=== PATIENT | male | born 1945 | race Caucasian/White ===

== ENCOUNTER → 2024-02-05 | Outpatient (CLI) | payer MEDICARE, SELFPAY ==
--- NOTE | 2024-02-05 09:51 | PCM.PR.HP ---
History of Present Illness General Arrival date:: 02/05/24 Arrival time:: 09:52 Date of Referral:: 01/15/24 Date of Evaluation: 02/05/24 Referring Physician: STEFFANIE Primary Diagnosis: COPD SEVERE History of Present Pulmonary Event [facility] Breathless Scale: When is the patient short of breath? Y/N Grade: Description of Breathlessness: 0 I only get breathless with strenuous exercise. 1 I get short of breath when hurrying on level ground or walking up a slight hill. 2 On level ground, I walk slower than people of the same age because of breathless, or have to stop for breath when walking at my own pace. 3 I stop for breath after walking 100 yards or after a few minutes on level ground. 4 I am too breathless to leave the house or I am breathless when dressing. Secretions Normal Color:: clear Thick:: Yes Amount/Day:: 1 TSP Cough:: Yes Sleep Disorder Evaluation Hx of Sleep Apnea: No Do you snore loudly (louder than talking or can be heard through closed doors)?: No Do you often feel tired/ fatigued/ sleepy during daytime?: No Has anyone observed you stop breathing during sleep?: No History of Hypertension (for STOP score): No STOP Results: Negative Medical Utilization Medical Devices Do you use a peak flow meter at home?: No Do you use a spacer device with your inhalers?: No Medical Utilization Number of hospital visits in the last year?: 3 Number of emergency room visits in the last year?: 3 Do you see your physician on a regular schedule?: Yes How often?: 3x year Advanced Directives Advanced Directives Power of Studio Producer: Yes Living Will: Yes Advance Directives Information Provided: No Advance Directives on File: No DNR Order?:: No Past Medical History Covid-19 Screening Physicial Symptoms Other Clinical Concerns Exposure Risk Pertinent Comorbidities 65 years or older:: Yes Has a chronic lung disease or moderate to severe asthma:: Yes Social History Smoking History Smoking Status: Former smoker Years Smokin Packs Smoked per Day: 1 (stopped in 2013) Alcohol Use Alcohol Usage: No Substance Abuse Hx Substance Use: No Occupation Occupation (List type of work in comments):: Retired Hobbies, Recreation, Social Activities Hobbies: Other Recreational Activities: I am able to engage in most, but not all activities Functioning ADL/IADL Current Ability Current Ability: Independent: Self-Care (e.g.,grooming, dressing, & bathing), Independent: Ambulation, Independent: Transfer and Independent: Household tasks (e.g., light meal prep, laundry, shopping) Pt Functioning Prior to Problem Prior Functioning: Self-Care (e.g.,grooming, dressing, & bathing): Independent, Ambulation: Independent, Transfer: Independent and Household tasks (e.g., light meal prep, laundry, shopping): Independent Social Environment Status Marital Status: Single Current Living Arrangements Living Environment:: Alone Children How many children do you have?: 1 Do any of your children live nearby?: Yes Safety Do you feel safe in your surroundings?: Yes Assistance Do you need any assistance at home?: no Review of Systems Review of Systems Review of Systems Respiratory: Reports Cough, Hemoptysis, SOB at Rest, SOB upon Exertion, Sputum production, Appetite, Normal, Fatigue and Sleep, Normal; Denies Pleuritic Pain, Wheezing, Dizziness/Lightheadedness, PVD or Sexual changes Pain Is Patient Pain Free?: No Pain Location: back and other (shoulders) Pain Level: 5/10 Risk Factor Assessment Chief Complaint Chief Complaint: COPD SEVERE Vital Signs Pulse Rate: 68 Pulse Rhythm: Regular Pulse Ox: 95 Blood Pressure: 150/80 Obesity Height: 6 ft Weight:: 180 lb Weight in Pounds: 180.0 lbs Weight Source: Estimated by Patient Body Mass Index (BMI): 24.4 Nutritional Referral for Obesity: No Physical Activity Physical Inactivity: None Risk Stratification Risk Guidelines: Moderate Risk: Risk Factor for Smoking, Risk Factor for Dyslipidemia, Risk Factor for Diabetes, Risk Factor for Obesity, Risk Factor for Hypertension and Risk Factor for Depression For Smoking Smoking Risk Guidelines For Dyslipidemia Dyslipidemia Risk Guidelines For Diabetes Mellitus Diabetes Risk Guidelines For Obesity/Overweight Obesity/Overweight Risk Guidelines For Hypertension Hypertension Risk Guidelines For Sedentary Lifestyle Sedentary Lifestyle Risk Guidelines For Depression Depression Risk Guidelines Motivation Motivation to Participate On a scale of 1 to 10, how prepared are you to commit to attending program?: 6 What do you see as barriers to successfully being able to complete the program?: no What do you see as the benefits of succesfully completing the program? In other words, what do you hope to get out of participating in the program?: more stamina Are there issues you are dealing with that will interfere with completing the program?: no Do you have a spouse or signficant other, family or friends who will help support you to complete the program?: yes
--- NOTE | 2024-02-05 09:58 | PCM.PR.TP ---
General Information2 General Information Admitting Diagnosis: COPD SEVERE Gold Classification:: GOLD 3: Severe Oxygen: 2 liters Personal Learning Style/Barriers Personal Learning Style:: Audio/Visual Stage of change r/t lifestyle modifications: Contemplation Education/Goals NE Patient Goals: Increase muscle strength: Initial Assessment, Experience less dyspnea: Initial Assessment, Improve energy level: Initial Assessment, Improve the ability to cope with ADLs: Initial Assessment, Improve diet and nutrition: Initial Assessment, Improve my quality of life: Initial Assessment and Reduce Stress/relaxation techniques: Initial Assessment Exercise - Initial Assessment Visit Date of Eval: 02/05/24 (initial eval ) Problem/Goals Problems: Deconditioning, No regular exercise, Knowledge deficit exercise guidelines and Knowledge deficit exercise safety Goals:: Resistance: 2-3x/weekly Physician Prescribed Exercise Modalities: Treadmill, Rower, Airdyne, NuStep, SciFit and Lateral [place] Frequency (days/week): 3 Duration (Minutes):: 30-45 Intensity: 60-80% of age predicted maximum heart rate reserve Current METSs:: 2 Target HR:: 98 Resting Blood Pressure: 150/80 Plan Plan and Plan to Review:: Benefits of exercise, Core components of exercise, How to measure dyspnea level, How to monitor dyspnea level, Exercise intensity, Home exercise guidelines and Thierry: 3-4/11-13 Home Exercise Mode: Other Nutrition/Wt Mgmt - Initial Visit Date of Eval: 02/05/24 (initial eval ) Weight Management Admit Height:: 6 ft Admit Weight:: 180 lb Admit BMI:: 24.4 Intervention Referral to dietitian:: No Will attend diet classes:: Yes Intervention/Plan: Instruct on ideal BMI & set weight loss goal w/patient, Assist pt to ID & incorporate diet changes for weight loss by S9, Refer to Structured Weight Loss program as appropriate, Encourage goal of using 250-300dcal per session for weight loss and Other additional plan/interventions Plan Nutrition Plan: Yes: Review BMI or WC & identify target wt & strategies for wt control, Yes: Nutrition education class:, Yes: Medication education class [Prednisone]:, Yes: Weight control education class:, Yes: Education re: Need for ongoing weight monitoring, Yes: Food diary: and Yes: Physical activity log: Nutrition/Wt Mgmt - 30-Day Weight Management Height: 6 ft Weight:: 180 lb BMI: 24.4 Nutrition/Wt Mgmt - 60-Day Weight Management Height: 6 ft Weight:: 180 lb BMI: 24.4 Nutrition/Wt Mgmt - 90-Day Weight Management Height: 6 ft Weight:: 180 lb BMI: 24.4 Nutrition/Wt Mgmt - Final Weight Management Height: 6 ft Weight:: 180 lb BMI: 24.4 Psychosocial - Initial Assess Visit Date of Eval: 02/05/24 (initial eval ) Problems/Goals History of Emotional Disorders: None Intervention/Plan: See List Interventions/Plan:: Assess stressors,coping strategies & signs of derpression on admission, Instruct/assist pt to develop coping & personal stress Mgt strategies, Refer to Behavioral Health if appropriate, Refer to Physician if appropriate, Instruct patient to recognize signs & symptoms of depression, Instruct patient to recog and Other additional plan/intervention Psychosocial - 30-Day Problems/Goals History of Emotional Disorders: None Plan Interventions/Plan:: Assess stressors,coping strategies & signs of derpression on admission, Instruct/assist pt to develop coping & personal stress Mgt strategies, Refer to Behavioral Health if appropriate, Refer to Physician if appropriate, Instruct patient to recognize signs & symptoms of depression, Instruct patient to recog and Other additional plan/intervention Psychosocial - 60-Day Problems/Goals History of Emotional Disorders: None Plan Interventions/Plan:: Assess stressors,coping strategies & signs of derpression on admission, Instruct/assist pt to develop coping & personal stress Mgt strategies, Refer to Behavioral Health if appropriate, Refer to Physician if appropriate, Instruct patient to recognize signs & symptoms of depression, Instruct patient to recog and Other additional plan/intervention Psychosocial - 90-Day Problems/Goals History of Emotional Disorders: None Plan Interventions/Plan:: Assess stressors,coping strategies & signs of derpression on admission, Instruct/assist pt to develop coping & personal stress Mgt strategies, Refer to Behavioral Health if appropriate, Refer to Physician if appropriate, Instruct patient to recognize signs & symptoms of depression, Instruct patient to recog and Other additional plan/intervention Psychosocial - Final Assess Problems/Goals History of Emotional Disorders: None Plan Interventions/Plan:: Assess stressors,coping strategies & signs of derpression on admission, Instruct/assist pt to develop coping & personal stress Mgt strategies, Refer to Behavioral Health if appropriate, Refer to Physician if appropriate, Instruct patient to recognize signs & symptoms of depression, Instruct patient to recog and Other additional plan/intervention Oxygen & Oxygen Titration Init Visit Date of Eval: 02/05/24 (initial eval ) Initial Assessment Oxygen on Admission: Continuous home use Patient Reports:: Prod cough daily >1 Tbsp and Hospitalized in the past 12 months [list how many times] Goal Oxygen & Oxygen Tritration Goals: Effective hypoxemia control and Uses O2 as Rx'd/safely Plans Plan: Monitor SpO2 rest & with exercise, Recommend appropriate FiO2 to Pt/MD, Assist to contact DME for O2, Train appropriate O2 use at rest, Train appropriate O2 use with exercise and Train O2 safety & systems Reviewed prescribed medications:: Purpose, Schedule and Importance of compliance Instruct correct technique/timing & care:: MDI, DPI, Nebulizer and Return demo use of inhaler Bronchial Hygiene Plan: Controlled cough, CPT, Vibratory PEP device, VEST, Role of exercise in secretion clearance, NS Nasal spray, Hydration, Hand hygiene, Evaluate sputum, When to call MD, Signs/symptoms to report:, Influenza/Pneumovax vaccines and Cleaning of respiratory equipment Core Components - Initial Visit Date of Eval: 02/05/24 (initial eval ) Hypertension Hypertension Diagnosis:: Not Applicable [place] [employer] Hypertension Guidelines Blood Pressure: 150/80 Outcomes/Goals: Able to verbalize/achieve optimal blood pressure <130/80, Incorporates diet changes & exercise for blood pressure control by DC and Other additional outcomes/goals Tobacco - Initial Assessment Tobacco Program Goals Stages of Change:: Contemplate Do you have family support?: Yes Tobacco Use: Non-smoker (reformed) Years Smokin Do you use smokeless tobacco?: No Smoking Cessation Referral:: No Individual Education/Counseling:: No Education Schedule Given:: Yes Gave Education Materials For:: Tobacco Triggers, Pulmonary Disease, Risk Factors, Breathing Techniques, Medical Compliance, Pulmonary A&P, Exacerbation Signs & Symptoms and Stress & Relaxation Exacerbation Mgmt & Airway Clearance Problems:: Poor knowledge of O2 use/safety Hypoxemia Goals:: Hypoxemia managed, Port system and Using O2 as Rx's safely Goals: Pt demonstrates effective cough, effective secretion clearance. and Pt describes signs and symptoms of infection. Patient Reports:: Prod cough daily >1 Tbsp and Hospitalized in the past 12 months [list how many times] Plan: Monitor SpO2 rest & with exercise, Recommend appropriate FiO2 to Pt/MD, Assist to contact DME for O2, Train appropriate O2 use at rest, Train appropriate O2 use with exercise and Train O2 safety & systems Instruct correct technique/timing & care:: MDI, DPI, Nebulizer and Return demo use of inhaler Bronchial Hygiene Plan: Controlled cough, CPT, Vibratory PEP device, VEST, Role of exercise in secretion clearance, NS Nasal spray, Hydration, Hand hygiene, Evaluate sputum, When to call MD, Signs/symptoms to report:, Influenza/Pneumovax vaccines and Cleaning of respiratory equipment Medication Interventions/plans: Instruct on medication effects & side effects, Review medication list w/patient every two weeks, Instruct importance of taking meds as ordered & assist problem solving and Other additional Medication Goals: Adherence to prescribed medications and Correct technique/timing & care of MDI, DPI, nebulizer, and spacer. Does pt report taking home meds as prescribed?: Yes Reviewed prescribed medications:: Purpose, Schedule and Importance of compliance Diabetes Diabetes:: No Referral to dietitian:: No Referral to Diabetic Clinic:: No Will attend diet classes:: Yes Core Components - 30 DAYS Hypertension Hypertension Diagnosis:: Not Applicable [place] [employer] Hypertension Guidelines Peak Exercise Blood Pressure:: 150/80 Outcomes/Goals: Able to verbalize/achieve optimal blood pressure <130/80, Incorporates diet changes & exercise for blood pressure control by DC and Other additional outcomes/goals Tobacco - 30-Day Tobacco Program Goals Stages of Change:: Contemplate Do you have family support?: Yes Tobacco Use: Non-smoker (reformed) Do you use smokeless tobacco?: No Smoking Cessation Referral:: No Education Schedule Given:: Yes Gave Education Materials For:: Tobacco Triggers, Pulmonary Disease, Risk Factors, Breathing Techniques, Medical Compliance, Pulmonary A&P, Exacerbation Signs & Symptoms and Stress & Relaxation Diabetes Diabetes:: No Core Components - 60 DAYS Hypertension Hypertension Diagnosis:: Not Applicable [place] [employer] Hypertension Guidelines Peak Exercise Blood Pressure:: 150/80 Outcomes/Goals: Able to verbalize/achieve optimal blood pressure <130/80, Incorporates diet changes & exercise for blood pressure control by DC and Other additional outcomes/goals Tobacco - 60-Day Tobacco Program Goals Stages of Change:: Contemplate Do you have family support?: Yes Tobacco Use: Non-smoker (reformed) Do you use smokeless tobacco?: No Smoking Cessation Referral:: No Individual Education/Counseling:: No Education Schedule Given:: Yes Gave Education Materials For:: Tobacco Triggers, Pulmonary Disease, Risk Factors, Breathing Techniques, Medical Compliance, Pulmonary A&P, Exacerbation Signs & Symptoms and Stress & Relaxation Diabetes Diabetes:: No Core Components - 90 DAYS Hypertension Hypertension Diagnosis:: Not Applicable [place] [employer] Hypertension Guidelines Peak Exercise Blood Pressure:: 150/80 Outcomes/Goals: Able to verbalize/achieve optimal blood pressure <130/80, Incorporates diet changes & exercise for blood pressure control by DC and Other additional outcomes/goals Tobacco - 90-Day Tobacco Program Goals Stages of Change:: Contemplate Do you have family support?: Yes Tobacco Use: Non-smoker (reformed) Do you use smokeless tobacco?: No Smoking Cessation Referral:: No Individual Education/Counseling:: No Education Schedule Given:: Yes Gave Education Materials For:: Tobacco Triggers, Pulmonary Disease, Risk Factors, Breathing Techniques, Medical Compliance, Pulmonary A&P, Exacerbation Signs & Symptoms and Stress & Relaxation Diabetes Diabetes:: No Core Components - Final Hypertension Hypertension Diagnosis:: Not Applicable [place] [employer] Hypertension Guidelines Peak Exercise Blood Pressure:: 150/80 Outcomes/Goals: Able to verbalize/achieve optimal blood pressure <130/80, Incorporates diet changes & exercise for blood pressure control by DC and Other additional outcomes/goals Tobacco - Final Tobacco Program Goals Stages of Change:: Contemplate Do you have family support?: Yes Tobacco Use: Non-smoker (reformed) Do you use smokeless tobacco?: No Smoking Cessation Referral:: No Individual Education/Counseling:: No Education Schedule Given:: Yes Diabetes Diabetes:: No Patient Health Questionnaire PHQ-9 Screening Initial Assessment: 1. Little interest or pleasure in doing things: Several days 2. Feeling down, depressed, or hopeless: Not at all 3. Trouble falling or staying asleep, or sleeping too much: Several days 4. Feeling tired or having little energy: More than half the days 5. Poor appetite or overeating: Not at all 6. Feeling bad about yourself -- or that you are a failure or have let yourself or your family down: Not at all 7. Trouble concentrating on things, such as reading the newspaper or watching television: Several days 8. Moving or speaking so slowly that other people could have noticed. Or the opposite - being so fidgety or restless that you have been moving around a lot more than usual: Not at all 9. Thoughts that you would be better off , or of hurting yourself in some way: Not at all How difficult have these problems made it for you to do your work, take care of things at home, or get along with other people?: Somewhat difficult Total Score: 5 Knowledge Questionaire (BCKQ) Information Information: [facility] COPD Knowledge Questionnaire (BCKQ) This questionnaire is designed to find out what you know about your lung problem. It should be completed without help form anyone else. This usually takes between 10 and 20 minutes. Your answers will help us to find out what information you need to help you to understand and manage your lung condition. Devaughn the grindstone which you think is the correct answer. Questions 1. In COPD: b. COPD can only be confirmed by breathing tests: True c. In COPD ther is usually gradual worsening over time: True d. In COPD oxygen levels in the blood are always low: False e. COPD is usually in people less than 40 years old: False 2. COPD: Lisa than 80% of COPD cases are caused by cigarette smoking: Don't know b. COPD can be caused by occupational dust exposure: True c. Longstanding asthma can develop into COPD: Don't know d. COPD is commonly an inherited disease: False e. Women are less vunerable to the effects of cigarette than men: False 3. The following symptoms are Common in COPD: a. Swelling of the ankles is common in COPD:: False b. Fatigue [tiredness] is common in COPD: Don't know c. Wheezing is common in COPD: True d. Crushing chest pain is common in COPD: Don't know e. Rapid weight loss is common in COPD: Don't know 4. Breathlessness in COPD: a. Severe breathlessness prevents travel by air: Don't know b. Breathlessness can be worsened by eating large meals: Don't know c. Breathlessness means that your oxygen levels are low: True d. Breathlessness is a normal response to exercise: True e. Breathlessness is primarily caused by a narrowing of the bronchial tubes: Don't know 5. Phlegm (sputum): a. Coughing phlegm is a common symptom in COPD: True b. Clearing phlegm is more difficult if you get dehydrated: Don't know c. Bronchodilator inhalers can help clear phlegm: Don't know d. Phlegm causes harm if swallowed: Don't know e. Clearing phlegm can be assisted by breathing exercises: True 6. Chest infections / exacerbations: a. Chest infections often cause coughing of blood: Don't know b. Chest infection phlegm usually becomes coloured (ylw/grn): True cExerbations (episodes of worsening) can occur in the absence of chest infection: Don't know d. Chest infections are always accompanied by a high temperature: Don't know e. Steroid tablets should be taken whenever there is an exacerbation: Don't know 7. Excercise in COPD: aWalking excercises better than breathing to improve fitness: False b. Exercise should be avoided as it strains the lungs: False c. Exercise can help maintain your bone density: True d. Exercise helps relieve depression: True e. Exercise should be stopped if it makes you breathless: True 8. Smoking: a. Stopping smoking will reduce the risk of heart disease: True b. Stopping smoking will slow down further lung damage: True c. Stopping smoking is pointless as the damage is done: False d.Stopping smoking usually results in improved lung function: True eNicotine replacement therapy only available on prescription: False 9. Vaccination: a. A flu jab is recommended every year: True b. You can get flu from having a flu jab: False c. You can only have a flu jab if you are 65 or over: Don't know d. A pneumonia jab protects against all forms of pneumonia: False e.You can have a pneumonia jab and a flu job on the same day: Don't know 10. Inhaled bronchodilators: a. Bronchodilators act quickly (within 10 minutes): Don't know b. Both short & long acting bronchodilators can be taken on the same day: True c. Spacers (volumatic,nebuhaler,serochamber)should be dried w/atowel after washing: Don't know d. A spacer device increases the medication to the lungs: Don't know e. Tremor may be a side effect of bronchodilators: True 11. Antibiotic treatment in COPD: a. To be effective, the course should last at least 10 days: Don't know b. Excessive use of antibiotics can cause resistant bacteria (germs): Don't know c. Antibiotics will clear all chest infections: False d. Antibiotic treatment is necessary for an exacerbation (worsening) however mild: False e. Seek advice if antibiotics cause severe diarrhoea: True 12. Steroid tablets given for COPD (eg Prednisolone): a. Steroid tablets help strengthen muscles: Don't know b. Steroid tablets should be avoided if there is a chest infection: Don't know c. The risk of long-term side effects due to steroids is less w/short courses then w/continous treatment: False dIndigestion is common side effect from using steroid tablet: Don't know e. Steroid tablets can increase your appetite: Don't know 13. Inhaled steroids (brown, red or orange): a. Inhaled steroids should be stopped if you are given steroid tablets: Don't know bSteroid inhalers can be used for rapid relief breathlessnes: True c. Spacer devices reduce the risk of getting thrush in the mouth: True d.Steroid inhaler should be taken before your bronchodilator: Don't know e. Inhaled steroids improve lung function in COPD: True COPD Assessment Test [CAT] Questions Never cough = 0, Cough all the time = 5: 1 No phlegm = 0, Chest full of phlegm = 5: 2 No chest tightness = 0, Chest very tight = 5: 1 No breathless w/exertion = 0, Very breathless w/exertion = 5: 5 No limitations w/activity = 0, Very limited w/activity = 5: 3 Confident leaving home = 0, Not at all confident = 5: 2 Sleep soundly = 0, Don't sleep soundly = 5: 2 Lots of energy = 0, No energy at all = 5: 5 Total CAT score:: 21 Self-Efficacy 6-Item Scale Initial Assessment: We would like to know how confident you are in doing certain activities. Please select your confidence level for: Fatigue Select Number: 4 Physical Discomfort or Pain Select Number: 3 Emotional Distress Select Number: 3 Other Symptoms or Health Problems Select Number: 2 Different Tasks and Activities Select Number: 5 Medication Select Number: 5 Total Score:: 3 Nutrition Survey Nutrition Survey Instructions Scoring Instructions Nutrition Survey Initial: Have you lost >10 lbs over the past 2 months without trying?: No Are you following a special diet at home for diabetes, low fat, or low salt?: No Are you interested in meeting with a dietitian for help understanding your diet?: No Do you eat less than 3 meals a day?: Yes Do you eat fatty meats (antunez, sausage, ribs, etc), fried foods, desserts, large amounts of salad dressings, margarine, butter, or cheese most days?: Yes Do you have food allergies? [Enter types in comment field]: No Do you eat in restaurants more than 3 times a week?: Yes Do you season food with salt, seasoning salt, or garlic salt?: No Do you used canned, boxed, frozen meals, or soups, seasoning packets?: Yes Total Score:: 4
[2024-02-05 10:34] VITALS: PULSE 68; O2SAT 95
[2024-02-05 10:38] VITALS: BP 150/80
[2024-02-05 10:54] VITALS: BP 150/80
[2024-02-05 11:11] VITALS: BMI 24.4
[2024-02-05 11:21] VITALS: BMI 24.4
== END | disposition home or self-care (01) ==
DX: J44.9 Chronic obstructive pulmonary disease, unspecified (principal)

== ENCOUNTER 2024-02-14 10:00 | Outpatient (RCR) | payer MEDICARE, SELFPAY ==
[2024-02-05 11:11] VITALS: BMI 24.4
== END 2024-02-16 23:59 ==
LOC: PR 10:00
DX: J44.9 Chronic obstructive pulmonary disease, unspecified (principal)
CPT/HCPCS: 97150; 94626

== ENCOUNTER 2024-03-16 13:00 | Outpatient (RCR) | payer MEDICARE, SELFPAY ==
[2024-02-05 11:11] VITALS: BMI 24.4
== END 2024-03-17 23:59 ==
LOC: PR 13:00
DX: J44.9 Chronic obstructive pulmonary disease, unspecified (principal)
CPT/HCPCS: 97150; 94626

== ENCOUNTER 2024-04-17 13:00 | Outpatient (RCR) | payer OTHER, SELFPAY ==
[2024-02-05 11:11] VITALS: BMI 24.4
--- NOTE | 2024-04-06 07:01 | PCM.PR.TP ---
Exercise - Initial Assessment Visit Session Number:: 22 Physician Prescribed Exercise Target HR:: 98 (THRR calculated 84-98) Current RPD:: 12-13 Maximum Exercise HR:: 98 Resting Blood Pressure: 116/62 Maximum Exercise Blood Pressure: 158/82 Minimum SpO2 with exercise: 94 (on 3 liters during exercise) EKG Type: NSR with rare PACs Nutrition/Wt Mgmt - Initial Visit Session Number:: 22 Weight Management Admit Height:: 6 ft Admit Weight:: 180 lb Admit BMI:: 24.4 Nutrition/Wt Mgmt - 30-Day Visit Date of Eval: 04/06/24 Session Number:: 22 Weight Management Height: 6 ft Weight:: 180 lb BMI: 24.4 Nutrition/Wt Mgmt - 60-Day Visit Date of Eval: 04/06/24 Session Number:: 22 Weight Management Height: 6 ft Weight:: 180 lb BMI: 24.4 Weight Goals Progress:: Goal met Nutrition/Wt Mgmt - 90-Day Visit Session Number:: 22 Weight Management Height: 6 ft Weight:: 180 lb BMI: 24.4 Weight Goals Progress:: Goal met Nutrition/Wt Mgmt - Final Visit Session Number:: 22 Weight Management Height: 6 ft Weight:: 180 lb BMI: 24.4 Psychosocial - Initial Assess Visit Session Number:: 22 Problems/Goals History of Emotional Disorders: Anxious and Depression Psychosocial Goals: 1. Patient is free from overwhelming symtoms of depression (or anxiety, 2. Identifies personal stressors & states the strategies for managing, 3. Identifies activities to decrease isolation and/or symptoms of, 4. Improved psychosocial coping skills., 5. Verbalizes coping strategies. and 7. Improved Q.O.L. Psychosocial Test Tool Used:: PHQ-9 Questionnaire Referred to MD for counseling:: No Referral to Behavioral Health PS - Interventions: Yes: Referral to Physician if PHQ-9 if score is 5-9: and Yes: Attend Stress Management Classes and No: Referral to Behavioral Health if PHQ-9 score >9: and No: Referral to [facility] Intervention/Plan: See List Interventions/Plan:: Assess stressors,coping strategies & signs of derpression on admission, Instruct/assist pt to develop coping & personal stress Mgt strategies, Instruct patient to recognize signs & symptoms of depression and Instruct patient to recog Psychosocial - 30-Day Visit Date of Eval: 04/06/24 Session Number:: 22 Problems/Goals History of Emotional Disorders: Anxious and Depression Psychosocial Goals: 1. Patient is free from overwhelming symtoms of depression (or anxiety, 2. Identifies personal stressors & states the strategies for managing, 3. Identifies activities to decrease isolation and/or symptoms of, 4. Improved psychosocial coping skills., 5. Verbalizes coping strategies. and 7. Improved Q.O.L. Psychosocial Test Tool Used:: PHQ-9 Questionnaire Referred to MD for counseling:: No Referral to Behavioral Health PS - Interventions: Yes: Referral to Physician if PHQ-9 if score is 5-9: and Yes: Attend Stress Management Classes and No: Referral to Behavioral Health if PHQ-9 score >9: and No: Referral to [facility] Plan Interventions/Plan:: Assess stressors,coping strategies & signs of derpression on admission, Instruct/assist pt to develop coping & personal stress Mgt strategies, Instruct patient to recognize signs & symptoms of depression and Instruct patient to recog Psychosocial - 60-Day Visit Date of Eval: 04/06/24 Session Number:: 22 Problems/Goals History of Emotional Disorders: Anxious and Depression Psychosocial Goals: 1. Patient is free from overwhelming symtoms of depression (or anxiety, 2. Identifies personal stressors & states the strategies for managing, 3. Identifies activities to decrease isolation and/or symptoms of, 4. Improved psychosocial coping skills., 5. Verbalizes coping strategies. and 7. Improved Q.O.L. Depression:: Impaired QOL Psychosocial Test Tool Used:: PHQ-9 Questionnaire Referred to MD for counseling:: No Referral to Behavioral Health PS - Interventions: Yes: Referral to Physician if PHQ-9 if score is 5-9: and Yes: Attend Stress Management Classes and No: Referral to Behavioral Health if PHQ-9 score >9: and No: Referral to [facility] Plan Interventions/Plan:: Assess stressors,coping strategies & signs of derpression on admission, Instruct/assist pt to develop coping & personal stress Mgt strategies, Instruct patient to recognize signs & symptoms of depression and Instruct patient to recog Psychosocial - 90-Day Visit Session Number:: 22 Problems/Goals History of Emotional Disorders: Anxious and Depression Psychosocial Goals: 1. Patient is free from overwhelming symtoms of depression (or anxiety, 2. Identifies personal stressors & states the strategies for managing, 3. Identifies activities to decrease isolation and/or symptoms of, 4. Improved psychosocial coping skills., 5. Verbalizes coping strategies. and 7. Improved Q.O.L. Depression:: Impaired QOL Psychosocial Test Tool Used:: PHQ-9 Questionnaire Referred to MD for counseling:: No Referral to Behavioral Health PS - Interventions: Yes: Referral to Physician if PHQ-9 if score is 5-9: and Yes: Attend Stress Management Classes and No: Referral to Behavioral Health if PHQ-9 score >9: and No: Referral to [facility] Plan Interventions/Plan:: Assess stressors,coping strategies & signs of derpression on admission, Instruct/assist pt to develop coping & personal stress Mgt strategies, Instruct patient to recognize signs & symptoms of depression and Instruct patient to recog Psychosocial - Final Assess Visit Session Number:: 22 Problems/Goals History of Emotional Disorders: Anxious and Depression Psychosocial Goals: 1. Patient is free from overwhelming symtoms of depression (or anxiety, 2. Identifies personal stressors & states the strategies for managing, 3. Identifies activities to decrease isolation and/or symptoms of, 4. Improved psychosocial coping skills., 5. Verbalizes coping strategies. and 7. Improved Q.O.L. Depression:: Impaired QOL Psychosocial Test Tool Used:: PHQ-9 Questionnaire Referred to MD for counseling:: No Referral to Behavioral Health PS - Interventions: Yes: Referral to Physician if PHQ-9 if score is 5-9: and Yes: Attend Stress Management Classes and No: Referral to Behavioral Health if PHQ-9 score >9: and No: Referral to [facility] Plan Interventions/Plan:: Assess stressors,coping strategies & signs of derpression on admission, Instruct/assist pt to develop coping & personal stress Mgt strategies, Instruct patient to recognize signs & symptoms of depression and Instruct patient to recog Oxygen & Oxygen Titration Init Visit Session Number:: 22 Initial Assessment SpO2:: 94 (on 3 liters during exercise) Oxygen & Oxygen Titration 30D Visit Date of Eval: 04/06/24 Session Number:: 22 Reassessment Breath Sounds:: Diminished and Insp. & Exp. Wheezing SpO2:: 94 (on 3 liters during exercise) Oxygen & Oxygen Titration 60D Visit Date of Eval: 04/06/24 Session Number:: 22 Reassessment Reassessment- 60 Days: Demonstrate knowledge of O2 Rx at rest & w/exercise, Using O2 as Rx'd, Has home O2 as Rx'd and Uses port O2 as Rx'd Breath Sounds:: Diminished and Insp. & Exp. Wheezing SpO2:: 94 (on 3 liters during exercise) Oxygen & Oxygen Titration 90D Visit Date of Eval: 04/06/24 Session Number:: 22 Reassessment Breath Sounds:: Diminished and Insp. & Exp. Wheezing SpO2:: 94 (on 3 liters during exercise) Oxygen & Oxygen Titration [place] Visit Date of Eval: 04/06/24 Session Number:: 22 Reassessment Breath Sounds:: Diminished and Insp. & Exp. Wheezing SpO2:: 94 (on 3 liters during exercise) [employer] Components - Initial Visit Session Number:: 22 Hypertension Hypertension Diagnosis:: Hypertension ICD-10 I10 BP: 116/62 [place] Hypertension Guidelines Blood Pressure: 158/82 Outcomes/Goals: Able to verbalize/achieve optimal blood pressure <130/80 and Incorporates diet changes & exercise for blood pressure control by DC Diabetes Diabetes:: No Heart Failure Documenting weight daily for CHF: No [employer] Components - 30 DAYS Visit Date of Eval: 04/06/24 Session Number:: 22 Hypertension Hypertension Diagnosis:: Hypertension ICD-10 I10 Resting Blood Pressure:: 116/62 [place] Hypertension Guidelines Peak Exercise Blood Pressure:: 158/82 Change in medication: No Outcomes/Goals: Able to verbalize/achieve optimal blood pressure <130/80 and Incorporates diet changes & exercise for blood pressure control by DC Interventions/plan: Instruct on optimal blood pressure, hypertension & medications and Instruct on effects of sodium, alcohol, stress, exercise &hypertension 30 day Reassessments:: Met Exacerbation Mgmt & Airway Clearance Reassessment: Demonstrates knowledge of O2 Rx at rest, Demonstrates knowledge of O2 Rx with exercise, Using O2 as prescribed, Has home O2 as prescribed and Uses port O2 as prescribed Bronchial Hygiene Plan: Yes: Pt demonstrates correctly for effective cough, Yes: Pt demo correct for improved hydration, Yes: Pt demo correct for hand hygiene, Yes: Pt demo correct for verbalize when to call MD and Yes: Pt demo correct for cleaning of respiratory equipment Medication Medication reassessment: Yes: Pt demonstrates correct technique timing for MDI (Demonstrated good technique/delivery of MDI), Yes: Pt demonstrates correct technique timing for DPI, Yes: Pt demonstrates correct technique timing for NEB and Yes: Pt demonstrates correct technique timing for spacer (Returned demonstration use of MDI/Spacer) Diabetes Diabetes:: No Heart Failure Documenting weight vickey: No [employer] Components - 60 DAYS Visit Date of Eval: 04/06/24 Session Number:: 22 Hypertension Hypertension Diagnosis:: Hypertension ICD-10 I10 Resting Blood Pressure:: 116/62 [place] Hypertension Guidelines Peak Exercise Blood Pressure:: 158/82 Change in medication: No Outcomes/Goals: Able to verbalize/achieve optimal blood pressure <130/80 and Incorporates diet changes & exercise for blood pressure control by DC Interventions/plan: Instruct on optimal blood pressure, hypertension & medications and Instruct on effects of sodium, alcohol, stress, exercise &hypertension 60 day Reassessments:: Met Exacerbation Mgmt & Airway Clearance Reassessment: Demonstrates knowledge of O2 Rx at rest, Demonstrates knowledge of O2 Rx with exercise, Using O2 as prescribed, Has home O2 as prescribed and Uses port O2 as prescribed Bronchial Hygiene Plan: Yes: Pt demonstrates correctly for effective cough, Yes: Pt demo correct for improved hydration, Yes: Pt demo correct for hand hygiene, Yes: Pt demo correct for verbalize when to call MD and Yes: Pt demo correct for cleaning of respiratory equipment Medication Medication list reviewed:: Yes Taking medications 100% of the time:: Met Medication reassessment: Yes: Pt demonstrates correct technique timing for MDI (Demonstrated good technique/delivery of MDI), Yes: Pt demonstrates correct technique timing for DPI, Yes: Pt demonstrates correct technique timing for NEB and Yes: Pt demonstrates correct technique timing for spacer (Returned demonstration use of MDI/Spacer) 60-day Reassessments:: Met Diabetes Diabetes:: No Heart Failure Documenting weight vickey: No Core Components - 90 DAYS Visit Session Number:: 22 Hypertension Hypertension Diagnosis:: Hypertension ICD-10 I10 Resting Blood Pressure:: 116/62 [place] Hypertension Guidelines Peak Exercise Blood Pressure:: 158/82 Outcomes/Goals: Able to verbalize/achieve optimal blood pressure <130/80 and Incorporates diet changes & exercise for blood pressure control by DC Interventions/plan: Instruct on optimal blood pressure, hypertension & medications and Instruct on effects of sodium, alcohol, stress, exercise &hypertension 90 day Reassessments:: Met Exacerbation Mgmt & Airway Clearance Bronchial Hygiene Plan: Yes: Pt demonstrates correctly for effective cough, Yes: Pt demo correct for improved hydration, Yes: Pt demo correct for hand hygiene, Yes: Pt demo correct for verbalize when to call MD and Yes: Pt demo correct for cleaning of respiratory equipment Medication Medication reassessment: Yes: Pt demonstrates correct technique timing for MDI (Demonstrated good technique/delivery of MDI), Yes: Pt demonstrates correct technique timing for DPI, Yes: Pt demonstrates correct technique timing for NEB and Yes: Pt demonstrates correct technique timing for spacer (Returned demonstration use of MDI/Spacer) Diabetes Diabetes:: No Core Components - Final Visit Session Number:: 22 Hypertension Hypertension Diagnosis:: Hypertension ICD-10 I10 Resting Blood Pressure:: 116/62 [place] [employer] Hypertension Guidelines Peak Exercise Blood Pressure:: 158/82 Outcomes/Goals: Able to verbalize/achieve optimal blood pressure <130/80 and Incorporates diet changes & exercise for blood pressure control by DC Exacerbation Mgmt & Airway Clearance Bronchial Hygiene Plan: Yes: Pt demonstrates correctly for effective cough, Yes: Pt demo correct for improved hydration, Yes: Pt demo correct for hand hygiene, Yes: Pt demo correct for verbalize when to call MD and Yes: Pt demo correct for cleaning of respiratory equipment Medication Medication reassessment: Yes: Pt demonstrates correct technique timing for MDI (Demonstrated good technique/delivery of MDI), Yes: Pt demonstrates correct technique timing for DPI, Yes: Pt demonstrates correct technique timing for NEB and Yes: Pt demonstrates correct technique timing for spacer (Returned demonstration use of MDI/Spacer) Diabetes Diabetes:: No Patient Health Questionnaire PHQ-9 Screening 60-Day Re-eval Assessment: 1. Little interest or pleasure in doing things: Not at all 2. Feeling down, depressed, or hopeless: Not at all 3. Trouble falling or staying asleep, or sleeping too much: Several days 4. Feeling tired or having little energy: Several days 5. Poor appetite or overeating: Not at all 6. Feeling bad about yourself -- or that you are a failure or have let yourself or your family down: Not at all 7. Trouble concentrating on things, such as reading the newspaper or watching television: Not at all 8. Moving or speaking so slowly that other people could have noticed. Or the opposite - being so fidgety or restless that you have been moving around a lot more than usual: Not at all 9. Thoughts that you would be better off , or of hurting yourself in some way: Not at all How difficult have these problems made it for you to do your work, take care of things at home, or get along with other people?: Not difficult at all Total Score: 2 Knowledge Questionaire (BCKQ) Information Information: [place] COPD Knowledge Questionnaire (BCKQ) This questionnaire is designed to find out what you know about your lung problem. It should be completed without help form anyone else. This usually takes between 10 and 20 minutes. Your answers will help us to find out what information you need to help you to understand and manage your lung condition. [place] the [place] which you think is the correct answer. Self-Efficacy 6-Item Scale 60-Day Re-eval Assessment: We would like to know how confident you are in doing certain activities. Please select your confidence level for: Fatigue Select Number: 7 Physical Discomfort or Pain Select Number: 6 Emotional Distress Select Number: 6 Other Symptoms or Health Problems Select Number: 5 Different Tasks and Activities Select Number: 8 Medication Select Number: 7 Total Score:: 6 Nutrition Survey Nutrition Survey Instructions Scoring Instructions
[2024-04-06 07:10] VITALS: BP 116/62; BP 158/82; O2SAT 94; BMI 24.4
== END 2024-04-17 23:59 ==
LOC: PR 13:00
DX: J44.9 Chronic obstructive pulmonary disease, unspecified (principal); J96.11 Chronic respiratory failure with hypoxia; R91.1 Solitary pulmonary nodule
CPT/HCPCS: 97150; 94626

== ENCOUNTER 2024-05-08 10:15 | Outpatient (RCR) | payer OTHER, SELFPAY ==
[2024-04-06 07:10] VITALS: BMI 24.4
[2024-04-18 01:03] VITALS: BP 116/62; BP 158/82; BMI 24.4
== END 2024-05-17 23:59 ==
LOC: PR 10:15
DX: J44.9 Chronic obstructive pulmonary disease, unspecified (principal)
CPT/HCPCS: 97150; 94626